=== PATIENT | female | born 1960 | race Caucasian/White ===

== ENCOUNTER 2018-03-31 17:36 | Observation (INO) | payer OTHER ==
[~2018-03-31] VITALS: Ht 165.1 cm; Wt 69.9 kg
[~2018-03-31 17:36] MED LIST: BREO ELLIPTA 21 EACH IH; DIHYDROERGO1 MG/1 M1 IM; KLONOPIN1 MG PO; MINIVELLE1 EACH TD; MOBIC15 MG PO; NEURONTIN300 MG PO; NIFEDIPINE ER30 MG PO; OMEPRAZOLE40 M1 PO; PROAIR HFA8.5 GM IH; PROMETHAZINE HC25 M1 PO; RANITIDINE HCL300 M1 PO; RELAFEN750 MG PO; SEROQUEL50 MG PO; SPIRIVA18 MCG IH; TESTOSTERONE CREAM TP; VIIBRYD20 MG PO
[2018-03-31 18:31] LABS: HEMATOCRIT 39.3 % (36.0-46.0); HEMOGLOBIN 13.6 G/DL (11.9-15.5); MCHC 34.6 G/DL (30.0-36.0); MCV 89.5 FL (83-99); PLATELET COUNT 276 K/uL (156-360); RBC DIS.WIDTH-CV 13.8 % (11.8-14.6); RBC DIS.WIDTH-SD 44.9 % (39-53); RED BLOOD COUNT 4.39 M/uL (3.80-5.20); WHITE BLOOD COUNT 12.8 K/uL (4.1-10.2)
[2018-03-31 18:41] LABS: ALBUMIN 4.1 g/dL (3.2-4.8)
[2018-03-31 18:42] LABS: CHLORIDE 108 mEq/L (99-109); POTASSIUM 3.4 mEq/L (3.7-5.4); SODIUM 141 mEq/L (136-147)
[2018-03-31 18:44] LABS: GLUCOSE 74 mg/dL (70-99); TOTAL PROTEIN 6.9 g/dL (6.4-8.3)
[2018-03-31 18:46] LABS: TOTAL BILIRUBIN 0.3 mg/dL (0.0-1.0)
[2018-03-31 18:47] LABS: ALKALINE PHOSPHATASE 92 IU/L (3-129)
[2018-03-31 18:48] LABS: CREATININE 0.8 mg/dL (0.6-1.3); GFR ESTIMATE (CALCULATED) > 59 mL/min/
[2018-03-31 18:49] LABS: AST (GOT) 25 IU/L (2-34); UREA NITROGEN (BUN) 11 mg/dL (9-23)
[2018-03-31 18:51] LABS: ALT (GPT) 17 IU/L (3-49)
[2018-03-31 18:54] LABS: TROP-I INTERPRETATION NEGATIVE; TROPONIN-I < 0.01 ng/mL (0.0-0.30)
[2018-03-31] MEDS ORDERED: ALLEGRA ALLERG180 MG PO (19:31)
[2018-03-31] MEDS ORDERED: INCRUSE ELLI62.5 MCG IH (19:31)
[2018-03-31] MEDS ORDERED: DALIRESP500 MCG PO (19:31)
[2018-03-31] MEDS ORDERED: PROVENTIL,2.5 MG/3 M IH (19:32)
[2018-03-31] MEDS ORDERED: VOLTAREN-XR100 MG PO (19:32)
[2018-03-31] MEDS ORDERED: DIFLUCAN150 MG PO (19:32)
[2018-03-31] MEDS ORDERED: BENZONATATE200 MG PO (19:33)
[2018-03-31] MEDS ORDERED: LEVAQUIN500 MG PO (19:33)
[2018-03-31 22:14] VITALS: BP 120/82
[2018-04-01 00:56] LABS: TROP-I INTERPRETATION NEGATIVE; TROPONIN-I < 0.01 ng/mL (0.0-0.30)
[2018-04-01 04:12] VITALS: BP 108/57
[2018-04-01 07:36] LABS: TROP-I INTERPRETATION NEGATIVE; TROPONIN-I < 0.01 ng/mL (0.0-0.30)
[2018-04-01 07:40] LABS: HDL CHOLESTEROL 62 MG/DL (Desirable>=50); LDL CHOLESTEROL 112 mg/dL (Desirable<100); NON-HDL CHOLESTEROL 131 mg/dL (Desirable<160); TOTAL CHOLESTEROL 193 mg/dL (Desirable<200); TRIGLYCERIDES 94 MG/DL (Normal: <150)
[2018-04-01 09:00] VITALS: BP 102/72
[2018-04-01 11:28] VITALS: BP 118/64
[2018-04-01] MEDS ORDERED: ASPIRIN81 M2 PO (12:57)
[2018-04-01] MEDS ORDERED: PREDNISONE20 MG PO (12:57)
[2018-04-01] MEDS ORDERED: NITROSTAT0.4 MG SL (13:13)
== END 2018-04-01 14:30 | disposition home or self-care (01) ==
LOC: RME 17:36 → EME 17:36 → EDOF 20:22 → 4SOUTH 20:22 → ENRESERV 20:24 → 4SOUTH 22:06 → ENPENDDIS 04-01 13:42 → 4SOUTH 04-01 14:30
PROVIDERS: Physician Assistant; Physician Assistant Medical
DX: R07.89 Other chest pain (principal); J44.1 Chronic obstructive pulmonary disease with (acute) exacerbation; J20.9 Acute bronchitis, unspecified; Z82.49 Family history of ischemic heart disease and other diseases of the circulatory system; R94.31 Abnormal electrocardiogram [ECG] [EKG]; M75.22 Bicipital tendinitis, left shoulder; F41.9 Anxiety disorder, unspecified; F32.9 Major depressive disorder, single episode, unspecified; F17.210 Nicotine dependence, cigarettes, uncomplicated; K21.9 Gastro-esophageal reflux disease without esophagitis; Z88.0 Allergy status to penicillin; Z83.3 Family history of diabetes mellitus
CPT/HCPCS: 71046; 80053; 80061; 84484; 85027; 85379; 93005; 94640; 99202; 99281; 99285; G0378; J1650; J7512

== ENCOUNTER 2018-04-03 11:54 | Emergency (ER) | payer OTHER ==
[~2018-04-03] VITALS: Ht 165.1 cm; Wt 68.4 kg
[~2018-04-03 11:54] MED LIST changes: +ALLEGRA ALLERG180 MG PO; +ASPIRIN81 M2 PO; +BENZONATATE200 MG PO; +DALIRESP500 MCG PO; +DIFLUCAN150 MG PO; +INCRUSE ELLI62.5 MCG IH; +LEVAQUIN500 MG PO; +NITROSTAT0.4 MG SL; +PREDNISONE20 MG PO; +PROVENTIL,2.5 MG/3 M IH; +VOLTAREN-XR100 MG PO
[2018-04-03 12:44] LABS: HEMATOCRIT 41.2 % (36.0-46.0); HEMOGLOBIN 13.9 G/DL (11.9-15.5); MCHC 33.7 G/DL (30.0-36.0); PLATELET COUNT 243 K/uL (156-360); RBC DIS.WIDTH-CV 14.2 % (11.8-14.6); RBC DIS.WIDTH-SD 47.8 % (39-53); RED BLOOD COUNT 4.48 M/uL (3.80-5.20); WHITE BLOOD COUNT 9.9 K/uL (4.1-10.2)
[2018-04-03 13:11] LABS: TROP-I INTERPRETATION NEGATIVE; TROPONIN-I < 0.01 ng/mL (0.0-0.30)
[2018-04-03 13:17] LABS: CHLORIDE 106 MEQ/L (99-109); CREATININE 0.8 MG/DL (0.6-1.3); GFR ESTIMATE (CALCULATED) > 59 mL/min/; POTASSIUM 3.3 MEQ/L (3.7-5.4); SODIUM 140 MEQ/L (136-147); UREA NITROGEN (BUN) 11 mg/dL (9-23)
[2018-04-03 13:21] LABS: GLUCOSE 108 mg/dL (70-99)
[2018-04-03 16:39] LABS: TROP-I INTERPRETATION NEGATIVE; TROPONIN-I < 0.01 ng/mL (0.0-0.30)
[2018-04-03] MEDS ORDERED: ATARAX,VISTARIL50 MG PO (17:29)
[2018-04-03 17:42] VITALS: BP 116/88
== END 2018-04-03 17:43 | disposition home or self-care (01) ==
LOC: EME 11:54
PROVIDERS: Nurse Practitioner Family
DX: R00.2 Palpitations (principal); J44.9 Chronic obstructive pulmonary disease, unspecified; F17.200 Nicotine dependence, unspecified, uncomplicated; K21.9 Gastro-esophageal reflux disease without esophagitis; F41.9 Anxiety disorder, unspecified; F32.9 Major depressive disorder, single episode, unspecified
CPT/HCPCS: 71046; 80048; 84484; 85027; 93005; 99281; 99283

== ENCOUNTER 2018-04-14 02:56 | Emergency (ER) | payer OTHER ==
[~2018-04-14] VITALS: Ht 165.1 cm; Wt 69.8 kg
[~2018-04-14 02:56] MED LIST changes: +ATARAX,VISTARIL50 MG PO
[2018-04-14 03:17] LABS: HEMATOCRIT 37.9 % (36.0-46.0); HEMOGLOBIN 12.7 G/DL (11.9-15.5); MCH 30.8 PG (29.0-34.0); MCHC 33.5 G/DL (30.0-36.0); PLATELET COUNT 272 K/uL (156-360); RBC DIS.WIDTH-CV 13.9 % (11.8-14.6); RBC DIS.WIDTH-SD 47.3 % (39-53); RED BLOOD COUNT 4.12 M/uL (3.80-5.20)
[2018-04-14 03:25] LABS: ALBUMIN 4.1 g/dL (3.2-4.8); CHLORIDE 107 mEq/L (99-109); POTASSIUM 4.1 mEq/L (3.7-5.4); SODIUM 143 mEq/L (136-147)
[2018-04-14 03:27] LABS: GLUCOSE 98 mg/dL (70-99); TOTAL PROTEIN 6.6 g/dL (6.4-8.3)
[2018-04-14 03:29] LABS: TOTAL BILIRUBIN 0.3 mg/dL (0.0-1.0)
[2018-04-14 03:31] LABS: ALKALINE PHOSPHATASE 80 IU/L (3-129); CREATININE 0.8 mg/dL (0.6-1.3); GFR ESTIMATE (CALCULATED) > 59 mL/min/
[2018-04-14 03:32] LABS: UREA NITROGEN (BUN) 11 mg/dL (9-23)
[2018-04-14 03:33] LABS: AST (GOT) 22 IU/L (2-34)
[2018-04-14 03:34] LABS: ALT (GPT) 24 IU/L (3-49)
[2018-04-14 05:01] LABS: APPEARANCE CLEAR ((CLEAR)); BILIRUBIN NEGATIVE; BLOOD NEGATIVE; COLOR YELLOW ((YELLOW)); GLUCOSE (STRIP) NEGATIVE; KETONES NEGATIVE; LEUKOCYTES NEGATIVE; NITRITE NEGATIVE; PROTEIN (STRIP) NEGATIVE; SPECIFIC GRAVITY 1.013 (1.000-1.030); UCUL ADDED? NO; UROBILINOGEN 0.2 MG/DL (0.2-1.0)
[2018-04-14] MEDS ORDERED: MEDROL DOSEPAK4 MG PO (05:09)
[2018-04-14 05:34] VITALS: BP 131/86
== END 2018-04-14 05:34 | disposition home or self-care (01) ==
LOC: EME 02:56
DX: M54.41 Lumbago with sciatica, right side (principal); M54.42 Lumbago with sciatica, left side; J44.9 Chronic obstructive pulmonary disease, unspecified; Z90.710 Acquired absence of both cervix and uterus; F17.200 Nicotine dependence, unspecified, uncomplicated
CPT/HCPCS: 80053; 81003; 85027; 99281; 99284; J7512